=== PATIENT | female | born 1950 | race Caucasian/White ===

== ENCOUNTER 2016-12-05 18:13 | Emergency (ER) | payer BC ==
[~2016-12-05] VITALS: Ht 165.1 cm; Wt 68.0 kg
--- NOTE | 2016-12-05 18:53 | NUR ---
LAB DRAWING BLOOD, DR PALACIOS HEMMACULT TO USE.
[2016-12-05 19:01] LABS: BASOPHILS # (AUTO) 0.1 K/uL (0.0-8.0); BASOPHILS % (AUTO) 0.8 % (0.0-2.0); EOSINOPHILS # (AUTO) 0.2 K/uL (0.0-0.7); EOSINOPHILS % (AUTO) 2.1 % (0.0-7.0); HEMATOCRIT 38.2 % (31.2-41.9); LYMPHOCYTES # (AUTO) 2.2 K/uL (20.0-40.0); LYMPHOCYTES % (AUTO) 26.1 % (20.5-51.5); MEAN CORPUSCULAR HGB CONC 34 g/dL (32.3-35.6); MEAN CORPUSCULAR VOLUME 93.9 fL (75.5-95.3); MONOCYTES # (AUTO) 0.6 K/uL (2.0-10.0); MONOCYTES % (AUTO) 7.6 % (0.0-11.0); NEUTROPHILS # (AUTO) 5.3 K/uL (1.8-8.9); NEUTROPHILS % (AUTO) 63.4 % (38.5-71.5); PLATELET COUNT (AUTO) 132 K/uL (179-408); RED BLOOD CELL COUNT(AUTO) 4.07 MIL/uL (3.63-4.92); RED CELL DISTRIBUTION WIDTH 13.2 % (12.3-17.7); WHITE BLOOD COUNT (AUTO) 8.4 K/uL (3.8-11.8)
[2016-12-05 19:06] LABS: CALCIUM 9.4 mg/dL (8.5-10.1); CARBON DIOXIDE 28 mmol/L (21-32); CHLORIDE 102 mmol/L (98-107); GFR > 130 mL/min (>60); GLUCOSE 106 mg/dL (74-106); POTASSIUM 4.3 mmol/L (3.5-5.1); SODIUM SERUM 140 mmol/L (136-145); UREA NITROGEN, BLOOD 14 mg/dL (7-18)
[2016-12-05 19:08] LABS: CREATININE < 0.2 mg/dL (0.6-1.3)
--- NOTE | 2016-12-05 19:19 | NUR ---
[facility] REPORT TO JOESPH BRIGHT
[2016-12-05 19:30] LABS: *OCCULT BLOOD STOOL POSITIVE (NEGATIVE)
--- NOTE | 2016-12-05 19:30 | NUR ---
RECTAL EXAM DONE WITH FEMALE NURSE ASSIST, OCCULT BLOOD POSITIVE,SENT TO LAB, DR GARCIA TALKING TO PT RE- OPTIONS OF TREATMENT/PROCEDURE.
--- NOTE | 2016-12-05 19:41 | NUR ---
PT OFFERED BY NICOLAS TO STAY IN THE HOSPITAL OR STAY FOR 4 MORE HOURS FOR A FOLLOW-UP CBC. PT DECLINED AND STATED SHE'LL COME BACK IF IT BECOMES WORSE, ACI GIVEN AND WITH PRESC EXPLAINED TO PT. DISCHARGED AMBULATORY IN STABLE CONDITION.
[2016-12-05 19:46] VITALS: BP 130/83
== END 2016-12-05 19:49 | disposition home or self-care (01) ==
LOC: ER 18:13
DX: K92.2 Gastrointestinal hemorrhage, unspecified (principal); R19.5 Other fecal abnormalities
CPT/HCPCS: 36415; 80048; 82270; 85025; 85730; 99284; A4663